=== PATIENT | male | born 2000 | race Caucasian/White ===

== ENCOUNTER 2018-12-11 10:53 | Emergency (ER) | payer BC ==
[~2018-12-11] VITALS: Ht 172.7 cm; Wt 63.5 kg
[2018-12-11] MEDS ORDERED: IPRATROPIUM BROMIDE 0.02% 2.5 ML NEB NEB STA (11:15)
[2018-12-11] MEDS ORDERED: ACETAMINOPHEN/CODEINE ELIX 120-12 MG/5 ML UDC PO ONE (11:15)
[2018-12-11] MEDS ORDERED: ALBUTEROL SULF 0.083% NEB SOLN 3 ML NEB NEB STA (11:15)
[2018-12-11] MEDS ORDERED: DEXAMETHASONE SOD PHOS 10 MG/1 ML VIAL IM ONE (11:15)
--- NOTE | 2018-12-11 12:13 | Diagnostic Imaging Report ---
Frontal and lateral views of the chest. HISTORY: Cough COMPARISON: None available. DISCUSSION: Lungs: The lungs are well inflated. No evidence of a consolidative pneumonia or pulmonary alveolar edema. Pleura: No pleural effusion or pneumothorax. Heart and mediastinum: The cardiomediastinal silhouette appears unremarkable. Bones and soft tissues: Appear unremarkable. IMPRESSION: No acute radiographic abnormality. Signed by: Dr. Edison Palacios D.O., M.M.M. on 12/11/2018 12:10 PM
== END 2018-12-11 12:43 | disposition home or self-care (01) ==
LOC: ER 10:53
DX: R05 Cough (principal); J20.9 Acute bronchitis, unspecified
CPT/HCPCS: 71046; 94640; 99284; J1100